=== PATIENT | female | born 1960 | race Caucasian/White ===

== ENCOUNTER → 2024-01-18 | Outpatient (CLI) | payer MEDICAID, SELFPAY ==
[2024-01-18 11:56] LABS: Absolute Lymphocyte Count 2.01 X10^3/uL (0.83-4.51); Absolute Neutrophil Count 4.6 X10^3/uL (2.0-7.7); Basophil# 0.06 X10^3/uL; Basophil% 0.8 % (0-1); Eosinophil# 0.11 X10^3/uL; Eosinophils% 1.5 % (0-5); Hematocrit 44.5 % (37-47); Hemoglobin 14.8 g/dL (12.0-15.0); Lymphocyte # 2.01 X10^3/ul (0.83-4.51); Lymphocyte % 27.6 % (19-41); Mean Corp Hgb Conc 33.3 g/dL (32-36); Mean Corpuscular Hgb 30.6 pg (27.0-32.0); Mean Corpuscular Volume 92.1 fL (81-99); Mean Platelet Vol. 11.4 fl (6.2-12.0); Monocyte# 0.49 X10^3/uL; Monocyte% 6.7 % (0-10); NRBC Flagged by Analyzer 0 % (0-5); Neutrophil # 4.59 X10^3/uL (2.7-7.7); Platelet Count 390 K/mm3 (150-450); RBC Distribution Width CV 13.2 % (11.6-14.6); RBC Distribution Width SD 44.6 fl (35.1-43.9); Red Blood Count 4.83 M/mm3 (4.2-5.4); White Blood Count 7.3 K/mm3 (4.4-11.0)
[2024-01-18 12:35] LABS: Vitamin D,25 Hydroxy 28.2 ng/mL
[2024-01-18 12:39] LABS: AST(SGOT) 25 U/L (15-37); Alanine Aminotransfer ALT/SGPT 34 U/L (13-56); Alkaline Phosphatase 124 U/L (45-117); Anion Gap 10 (5-15); BUN 15 mg/dL (7-18); BUN/Creat Ratio 16.1 RATIO (10-20); Calcium,Total 9.5 mg/dL (8.5-10.1); Chloride 106 mmol/L (98-107); Cholesterol 267 mg/dL (200); Creatinine, Serum 0.93 mg/dL (0.55-1.02); EST Glomerular Filtration Rate 65 mL/min (>60); Est Glom Filt Rate - Afr Amer 79 mL/min (>60); Globulin 4.2 g/dL (2.2-4.2); Glucose 107 mg/dL (74-106); High Density Lipoprotein 58 mg/dL; Potassium 3.8 mmol/L (3.5-5.1); Protein, Total 8.2 g/dL (6.4-8.2); Sodium Level 141 mmol/L (136-145); Thyroid Stim Hormone (TSH) 3.02 uIU/mL (0.358-3.74); Triglycerides 193 mg/dL; Very Low Density Lipoprotein 39 mg/dL (5-40)
== END | disposition home or self-care (01) ==
LOC: MFPLAB 10:06
PROVIDERS: Visit Provider Family Medicine
DX: Z13.21 Encounter for screening for nutritional disorder (principal); Z13.220 Encounter for screening for lipoid disorders; R03.0 Elevated blood-pressure reading, without diagnosis of hypertension; Z13.1 Encounter for screening for diabetes mellitus
CPT/HCPCS: 36415; 80053; 80061; 82306; 84443; 85025

== ENCOUNTER → 2024-01-31 | Outpatient (CLI) | payer MEDICAID, SELFPAY ==
[2024-02-04 16:45] LABS: HPV Reflexed? NOT INDICATED
== END | disposition home or self-care (01) ==
PROVIDERS: Visit Provider Nurse Practitioner Family
DX: Z12.4 Encounter for screening for malignant neoplasm of cervix (principal)
CPT/HCPCS: 88175; G0145

== ENCOUNTER → 2024-02-04 | Outpatient (CLI) | payer MEDICAID, SELFPAY ==
--- NOTE | 2024-02-04 13:40 | BI_ITS ---
MAMMOGRAPHY - BILATERAL SCREENING REASON FOR EXAM: Female, 63 years old. Routine annual screening examination. PERTINENT HISTORY: Non-contributory. TECHNIQUE: Digital bilateral breast mallory (3D mammographic acquisition) in the CC and MLO projections. 2-D mediolateral oblique (MLO) and craniocaudad (CC) views of both breasts were obtained. CAD: Full Field Digital Mammography with Computer Added Detection was performed. COMPARISON: Comparison is made with prior study dated April 28, 2012. FINDINGS: Breast Composition: The breasts are almost entirely fatty. There are no dominant masses or suspicious calcifications. There is a 4.8 mm x 6.1 mm slightly ill-defined nodule in the deep upper lateral portion of the right breast. Correlation with ultrasound is recommended. No other significant abnormalities are identified. BI/SCRN MAMM (CAD)W/MALLORY BILAT IMPRESSION: 4.8 mm x 6.1 mm slightly ill-defined nodule in the deep upper lateral portion of the right breast. Correlation with ultrasound is recommended. ASSESSMENT CATEGORY: BIRADS Category 0: Incomplete. Need additional imaging evaluation. A letter regarding these results will be sent to the patient by the facility within 30 days. Approximately 10% of breast cancers are not detected by mammography. A normal mammogram should not delay biopsy of a clinically suspicious abnormality. [id number] Electronically Signed: Chu Nathan MD at 14:49 EDT ,
== END | disposition home or self-care (01) ==
LOC: OPBI 13:38
PROVIDERS: PCP Family Medicine; Referring Provider Nurse Practitioner Family; Visit Provider Nurse Practitioner Family
DX: Z12.31 Encounter for screening mammogram for malignant neoplasm of breast (principal)
CPT/HCPCS: 77063; 77067

== ENCOUNTER → 2024-02-10 | Outpatient (CLI) | payer MEDICAID, SELFPAY ==
--- NOTE | 2024-02-10 12:41 | US_ITS ---
STUDY: ULTRASOUND BREAST - RIGHT REASON FOR EXAM: Female, 63 years old. Abnormal screening mammogram. TECHNIQUE: Axial and longitudinal images of the RIGHT breast were performed with a high resolution ultrasound transducer. # OF IMAGES: 22 COMPARISON: Comparison is made with prior study dated February 04, 2024. FINDINGS: RIGHT Breast: The upper outer quadrant of the right breast was examined with ultrasound. There is a 1.6 cm x 1 cm x 0.6 cm benign-appearing fatty lymph node at the 11:00 position of the breast at 10 cm from the nipple. US/Breast Limited Unilateral IMPRESSION: 1.6 cm x 1 cm x 0.6 cm benign-appearing lymph node in the 11:00 position of the breast at 10 cm from the nipple. ASSESSMENT CATEGORY: BIRADS Category 2: Benign. A letter regarding these results will be sent to the patient by the facility within 30 days. Electronically Signed: Chu Nathan MD at 14:23 EDT ,
== END | disposition home or self-care (01) ==
LOC: OPUS 12:41
PROVIDERS: PCP Family Medicine; Referring Provider Nurse Practitioner Family; Visit Provider Nurse Practitioner Family
DX: R92.8 Other abnormal and inconclusive findings on diagnostic imaging of breast (principal); N63.0 Unspecified lump in unspecified breast
CPT/HCPCS: 76642

== ENCOUNTER 2024-04-03 12:52 | Emergency (ER) | payer MEDICAID, SELFPAY ==
[2024-04-03 12:53] VITALS: BP 130/98; PULSE 121; RESP 18; TEMP 36.9; O2SAT 95; BMI 30.9
[2024-04-03 13:49] LABS: Absolute Lymphocyte Count 0.88 X10^3/uL (0.83-4.51); Absolute Neutrophil Count 8.2 X10^3/uL (2.0-7.7); Basophil# 0.08 X10^3/uL; Basophil% 0.8 % (0-1); Eosinophil# 0.04 X10^3/uL; Eosinophils% 0.4 % (0-5); Hematocrit 46.5 % (37-47); Hemoglobin 15.8 g/dL (12.0-15.0); Lymphocyte # 0.88 X10^3/ul (0.83-4.51); Lymphocyte % 8.3 % (19-41); Mean Corpuscular Hgb 30.4 pg (27.0-32.0); Mean Corpuscular Volume 89.4 fL (81-99); Mean Platelet Vol. 11.4 fl (6.2-12.0); Monocyte# 1.32 X10^3/uL; Monocyte% 12.5 % (0-10); NRBC Flagged by Analyzer 0 % (0-5); Neutrophil % 77.7 % (47-70); POSITIVE MORPHOLOGY YES; Platelet Count 397 K/mm3 (150-450); RBC Distribution Width CV 12.7 % (11.6-14.6); RBC Distribution Width SD 41.3 fl (35.1-43.9); White Blood Count 10.6 K/mm3 (4.4-11.0)
[2024-04-03] MEDS: 0.9% Normal Saline (1000mL) 1,000 ML 1000 ML IV (13:54)
[2024-04-03] MEDS: Ondansetron 4 MG/2 ML Vial IV (13:55)
[2024-04-03 14:00] LABS: Differential Indicated SCAN CRITERIA MET
[2024-04-03 14:08] LABS: AST(SGOT) 16 U/L (15-37); Alanine Aminotransfer ALT/SGPT 21 U/L (13-56); Albumin, Serum 3.8 g/dL (3.2-5.0); Alkaline Phosphatase 115 U/L (45-117); Anion Gap 10 (5-15); BUN 20 mg/dL (7-18); Calcium,Total 9.5 mg/dL (8.5-10.1); Chloride 107 mmol/L (98-107); EST Glomerular Filtration Rate 60 mL/min (>60); Est Glom Filt Rate - Afr Amer 72 mL/min (>60); Estimated Creatinine Clearance 56.62 ml/min; Glucose 158 mg/dL (74-106); Potassium 3.3 mmol/L (3.5-5.1); Protein, Total 7.8 g/dL (6.4-8.2); Sodium Level 138 mmol/L (136-145)
[2024-04-03 14:24] LABS: Differential Comment SCANNED
[2024-04-03 14:30] LABS: Bacteria 0 SEEN /hpf (None Seen); Color, Urine Yellow (Yellow); Glucose, Dipstick Normal (Normal); Leukocyte Esterase-Dipstick 500 /ul (Negative); Mucous, Urine 0 SEEN /hpf (<or=2+); Nitrite-Dipstick Positive (Negative); Occult Blood-Urine 25 /ul (Negative); Protein-Dipstick 30 mg/dl (Negative); Red Blood Cells-Urine 0 SEEN /hpf (0-5); Urine Clarity Clear (Clear); Urine Urobilinogen 4 mg/dl (Normal)
[2024-04-03 14:39] LABS: Ketone-Dipstick 150 mg/dl (Negative); Urine Bilirubin Dipstick 3 mg/dL (Negative)
[2024-04-03 14:41] LABS: Squamous Epithelial Cells - UA 0-5 SEEN /hpf (5-10); White Blood Cells 0-5 SEEN /hpf (0-5)
[2024-04-03 14:50] VITALS: BP 119/75; PULSE 101; RESP 20; TEMP 36.4; O2SAT 98
--- NOTE | 2024-04-03 15:13 | ED.VIS.GI ---
HPI HPI - GI History of Present Illness Chief Complaint: Nausea/Vomiting/Diarrhea Narrative Narrative: 63-year-old female presenting with nausea, vomiting, diarrhea. She does not have abdominal pain. She does not know if she has had a fever because she does not have a thermometer. Denies cough, shortness of breath. States she has 1 kidney so she gets concerned about dehydration when she is ill. No urinary complaints. Symptoms ongoing since Wednesday PFS PFS Home Medications ?Medication ?Instructions ?Recorded ?Last Taken ?Type ondansetron 4 mg disintegrating 4 mg PO Q8H PRN PRN Nausea #14 tabs 04/03/24 Unknown Rx tablet Allergy/AdvReac Type Severity Reaction Status Date / Time No Known Allergies Allergy Verified 04/03/24 12:53 Social History Smoking Status: Never smoker ROS ROS ED Constitutional Constitutional ED: Reports chills and sweats; Denies fever(s) Eyes Eyes: Denies blurry vision or change in vision ENT ENT ED: Denies ear pain, rhinorrhea or sore throat Cardiovascular Cardiovascular: Denies chest pain, palpitations or racing heartbeat Respiratory/Chest Respiratory/Chest: Denies cough, dyspnea or sputum Gastrointestinal Gastrointestinal: Reports diarrhea, nausea and vomiting; Denies abdominal pain or constipation Genitourinary Genitourinary ED: Denies dysuria, hematuria or urinary frequency Musculoskeletal Musculoskeletal: Reports myalgias; Denies arthralgias or neck pain Integumentary Denies abscess, Abrasions or rash Neurologic Neurologic: Denies headache(s), paresthesias or weakness Psychiatric Psychiatric: Denies anxiety, depression, suicidal ideation or suicidal thoughts Endocrine Endocrinology: Denies polydipsia or polyuria EXAM Physical Exam Const Vital Signs: 04/03/24 12:53 04/03/24 14:50 Temperature 98.4 F 97.5 F L Temperature Source Temporal Pulse Rate 121 H 101 H Respiratory Rate 18 20 H Blood Pressure 130/98 H 119/75 Blood Pressure Mean 108 89 Pulse Ox 95 98 MDM MDM MDM Narrative Medical decision making narrative: Patient presenting with nausea, vomiting, diarrhea. Suspect this is likely something viral. Patient does not care to be tested. IV line was established and patient was medicated with normal saline and Zofran. Differential includes viral etiology, dehydration, anemia, electro abnormalities. CBC will be obtained to assess white blood cell count, hemoglobin, platelets. CMP to assess renal function, electrolytes, liver function, glucose. Lipase to assess for pancreatitis. Urinalysis to assess for UTI. CBC shows normal white blood cell count 2.6. Hemoglobin 15.8. Platelets are normal. 7. Renal function and electrolytes within normal limits with exception of potassium of 3.3. LFTs are normal. Lipase normal. Urinalysis shows positive nitrites however she does not have an 500 leukocyte esterase however there is 0-5 squamous epithelial cells and is 5 to BCs. She does not have any urinary complaints I will send this for culture. Patient feeling better on reevaluation. I will send her home with Raulito. She is encouraged to plenty fluids. She was able to pass a p.o. challenge. Impression: 1. Viral gastroenteritis Lab Data Attestation: I reviewed the patient's lab results. Labs: Laboratory Results - last 24 hr 04/03/24 04/03/24 13:40 14:26 WBC 10.6 RBC 5.20 Hgb 15.8 H Hct 46.5 MCV 89.4 MCH 30.4 MCHC 34.0 RDW Std Deviation 41.3 RDW Coeff of Tato 12.7 Plt Count 397 MPV 11.4 Immature Gran % (Auto) 0.300 Neut % (Auto) 77.7 H Lymph % (Auto) 8.3 L [place] % (Auto) 12.5 H Eos % (Auto) 0.4 Baso % (Auto) 0.8 Absolute Neuts (auto) 8.2 H Absolute Lymphs (auto) 0.88 Nucleated RBC % 0 Differential Comment SCANNED Sodium 138 Potassium 3.3 L Chloride 107 Carbon Dioxide 21.0 Anion Gap 10 BUN 20 H Creatinine 1.00 Estim Creat Clear Calc 56.62 Est GFR (MDRD) Af Amer 72 Est GFR (MDRD) Non-Af 60 BUN/Creatinine Ratio 20.0 Glucose 158 H Calcium 9.5 Total Bilirubin 1.00 AST 16 ALT 21 Alkaline Phosphatase 115 Total Protein 7.8 Albumin 3.8 Globulin 4.0 Albumin/Globulin Ratio 1.0 Urine Color Yellow Urine Clarity Clear Urine pH 5.0 Ur Specific [place] 1.020 Urine Protein 30 H Urine Glucose (UA) Normal Urine Ketones 150 A* Urine Occult Blood 25 H Urine Nitrite Positive H Urine Bilirubin 3 H Urine Urobilinogen 4 H Ur Leukocyte Esterase 500 H Urine RBC 0 SEEN Urine WBC 0-5 SEEN Ur Squamous Epith Cells 0-5 SEEN Urine Bacteria 0 SEEN Urine Mucus 0 SEEN Discharge Plan Triage Chief Complaint: Nausea/Vomiting/Diarrhea ED Provider: Robb Johnson Dx/Rx/DC Orders Instructions: ED Gastroenteritis, Viral (Adult) Prescriptions: New ondansetron 4 mg tablet,disintegrating 4 mg PO Q8H PRN PRN (Reason: Nausea) Qty: 14 0RF Primary Care Provider: Violeta Valdes Referrals: Violeta Valdes MD [Primary Care Provider] - Print Language: [place] Citizen Disposition Disposition: Home, Self Care Discharge Date/Time: 04/03/24 14:50
== END 2024-04-03 14:50 | disposition home or self-care (01) ==
PROVIDERS: Emergency Provider Student in an Organized Health Care Education/Training Program; PCP Family Medicine; Visit Provider Student in an Organized Health Care Education/Training Program
DX: A08.4 Viral intestinal infection, unspecified (principal); Z90.5 Acquired absence of kidney; M79.10 Myalgia, unspecified site; R68.83 Chills (without fever)
CPT/HCPCS: 80053; 81001; 85025; 87086; 87088; 96361; 96374; 99282; A4216; J2405

== ENCOUNTER → 2024-10-06 | Outpatient (CLI) | payer MEDICAID, SELFPAY ==
--- NOTE | 2024-10-06 12:58 | RAD_ITS ---
STUDY: X-RAY - RIGHT ANKLE REASON FOR EXAM: Female, 63 years old. Ankle pain TECHNIQUE: 3 views of the right ankle. COMPARISON: None. FINDINGS: Normal visualized distal tibia and fibula. Normal medial and lateral malleoli. Normal tibiotalar articulation and ankle mortise. Normal visualized talus and calcaneus. The visualized subtalar, talonavicular, calcaneocuboid and tarsal articulations are normal. There is no demonstrated fracture. The soft tissue structures are unremarkable. RAD/Ankle min 3 Views IMPRESSION: Normal x-ray examination of the ankle. Electronically Signed: Brayden Jordan MD at 12:25 EST ,
--- NOTE | 2024-10-06 13:00 | RAD_ITS ---
STUDY: X-RAY - RIGHT KNEE REASON FOR EXAM: Female, 63 years old. Knee pain TECHNIQUE: 4 views of the right knee. COMPARISON: None. FINDINGS: Normal visualized distal femur. Normal visualized proximal tibia and fibula. Normal proximal tibiofibular articulation. There is no demonstrated fracture. Normal medial femorotibial compartment. Normal lateral femorotibial compartment. Normal patellofemoral articulation. There is a small volume joint effusion. The soft tissue structures are unremarkable. RAD/Knee 4 or More Views IMPRESSION: Small joint effusion. No demonstrated fracture. Electronically Signed: Brayden Jordan MD at 11:53 EST ,
== END | disposition home or self-care (01) ==
PROVIDERS: PCP Family Medicine; Referring Provider Family Medicine; Visit Provider Family Medicine
DX: M25.561 Pain in right knee (principal); M25.571 Pain in right ankle and joints of right foot
CPT/HCPCS: 73564; 73610

== ENCOUNTER → 2024-11-09 | Outpatient (CLI) | payer MEDICAID, SELFPAY ==
--- NOTE | 2024-11-09 10:50 | VDLE_ITS ---
Reason For Study: Bilateral leg swelling RIGHT LEFT GSV is normal. GSV is normal. CFV is compressible, spontaneous, phasic, CFV is compressible, spontaneous, phasic, competent and demonstrates normal competent, and demonstrates normal augmentation. augmentation. FV is compressible, spontaneous, phasic, FV is compressible, spontaneous, phasic, competent and demonstrates normal competent and demonstrates normal augmentation. augmentation. POP V is compressible, spontaneous, phasic, POP V is compressible, spontaneous, phasic, competent and demonstrates normal competent and demonstrates normal augmentation. augmentation. T/P Trunk is compressible. T/P Trunk is compressible. PTV is compressible. PTV is compressible. RT PerV is compressible. LT PerV is compressible. Procedure This is a venous duplex using B-mode, color flow and spectral Doppler. Exam performed in department. A preliminary report was called and/or faxed to Dr. Valdes. VL/Venous Duplex US - [place] Extrem Interpretation Summary Deep veins of the lower extremities are bilaterally patent and compressible seg mentally. There is no evidence of deep vein thrombosis on either side. Valvular competence appears in tact within the proximal deep venous systems bilaterally. The great saphenous veins appear bila terally patent and compressible segmentally. Ordering Physician: Violeta Valdes Referring Physician: Violeta Valdes Performed By: Anuradha Tyosn RVT
== END | disposition home or self-care (01) ==
LOC: CVS 10:47
PROVIDERS: PCP Family Medicine; Referring Provider Family Medicine; Visit Provider Family Medicine
DX: R60.0 Localized edema (principal)
CPT/HCPCS: 93970

== ENCOUNTER 2024-11-14 13:00 | Outpatient (RCR) | payer MEDICAID, SELFPAY ==
--- NOTE | 2024-10-17 14:30 | HP.PTEVAL ---
Patient's Visit Information Visit Information Visit Information: RIP WANG is a 64 year old F referred to Physical Therapy by Violeta Valdes MD with a diagnosis of RIGHT KNEE AND ANKLE PAIN. Date of Evaluation: 10/17/24 Physical Therapist: Domingo Queen, PT, Cert MDT, OCS Visit Plan Frequency: 2x /Week Duration: 4 Weeks Plan: PT INTERVENTIONS DLS ,HIP STRENGTHENING , LE FLEXABILITY ,FUNCTIONAL STRENGTHENING AND MODALTIES Subjective Subjective: This 64 y/o female to physical therapy with right leg. Patient martinez right leg pain for ~ 1 year. Patient noticed symptoms pain was worsen especially when driving a car.Seen Dr recommended PT and had x-rays knee ankle -. Patient pain located thigh to foot. Aggravating stairs ,kneeling and squatting extended walking and standing. Worse in morning.Alleviating factors activity. Symptoms worse with inactivity but stretching. Paresthesia/tingling -. Coughing/sneezing +.Sleeping is affected by pain . Patient has no trauma or injury no h/o back pain. Patient condition affects QOL and function.Patient goals to decrease pain. SOCIAL: single VOCATION: home Pain Right Lower Extremity: Pain Intensity (Out of 10): 5 Pain Intensity Range: 10 Comment: right ankle Objective Objective: POSTURE: mod thoracic kyphosis with swayed spine PALPATION: tender piriformis ,SI ,lateral hip NEURO: denies paresthesia/tingling ,reflexes L3-4 ,L4-5 ,L5-S1 1/3 GAIT: ambulates with reciprocal pattern light antalgic right side SYMMETRIES: align PROM HIP: hip flexion 115 degrees ,IR 0 degrees pain , MMT: ( peak force ) right hip flexion 22.1 ,hip abd 9.1 ,quads/hams/ankle 4/5 ,left 4/5 LUMBAR ROM : flexion min loss pain leg ,extension mod loss pain , side glides min loss Special Tests L/S Slump test left side: Negative L/S Slump test right side: Negative L/S Left Straight Leg Raise: Negative L/S Right Straight Leg Raise: Negative Lumbar Standing: Flexion - Mechanical Response: No effect Lumbar Standing: Flexion - Symptoms During Testing: Increases Lumbar Standing: Flexion - Symptoms After Testing: Worse Lumbar Standing: Extension - Mechanical Response: No effect Lumbar Standing: Extension - Symptoms During Testing: Increases Lumbar Standing: Extension - Symptoms After Testing: Worse Lumbar Standing: Right Side Glides - Mechanical Response: No effect Lumbar Standing: Right Side [place] - Symptoms During Testing: No effect Lumbar Standing: Right Side [place] - Symptoms After Testing: No effect Lumbar Standing: Left Side [place] - Mechanical Response: No effect Lumbar Standing: Left Side [place] - Symptoms During Testing: No effect Lumbar Standing: Left Side [place] - Symptoms After Testing: No effect R Hip Scour: Negative R Hip KAROLYN - Intraarticular Pathology: Positive R Hip Trendelenberg - Glut Medius: Positive R Knee [place] - Meniscus: Negative R Knee Posterior Drawer - PCL: Negative R Knee Posterior Sag - PCL: Negative R Knee Valgus - MCL: Negative R Knee Varus - LCL: Negative R Knee Patellar Grind - PFS: Negative Balance/Special Test Scores Lower Extremity Functional Score: 31 Goals Goal 1:: Patient to be I with HEP for back and hip Goal Time Frame: 4-6 Weeks Goal 2:: Patient to demonstrate 50% improvement with less pain and improved function Goal Time Frame: 4-6 Weeks Goal 3:: Patient improve peak force hip by 5-10m # to increase strength. Goal Time Frame: 4-6 Weeks Goal 4:: Patient improve LFES score by 5-10 # to improve QOL and function. Goal Time Frame: 4-6 Weeks Goal 5:: Patient to normalize gait with activity Goal Time Frame: 4-6 Weeks Rehabilitation Potential Physical Therapy Diagnosis: This patient has weakness hip along with pain is produced with lumbar motion testing causing radicular symptoms in right leg ,eventually may need further imaging in lumbar and hip thus benefit from skilled PT Rehabilitation Potential: Good Anticipated Interventions Patient/Client Instruction: Educate patient on: Condition and Plan of Care For the Purpose of:: To decrease pain, To increase ROM, To improve muscle performance and motor function, To improve ability to perform ADL's, To improve performance and independence with ADL's, To improve ability of physical actions for home/community/work/leisure, To improve health of tissue, To decrease soft tissue restriction, To improve health and function and To improve tolerance to ADL's Therapeutic Exercise to Include: Strength training, Body mechanics, Postural training, Flexibilty training and Dynamic Lumbar Stabilization Comment: HIP STRENGTHENING For the Purpose of:: To decrease pain, To increase ROM, To improve muscle performance and motor function, To increase tolerance to activity/condition/position, To improve ability of physical actions for home/community/work/leisure, To improve health of tissue, To decrease soft tissue restriction, To increase flexibility/ROM and To reduce risk of recurrence TENS: Yes IF ES: Yes Cryotherapy (ice pack, ice massage): Yes Thermo therapy (hot pack): Yes Ultrasound (thermal/non thermal): Yes For the Purpose of:: To decrease pain, To increase ROM, To improve muscle performance and motor function, To increase tolerance to activity/condition/position, To improve ability of physical actions for home/community/work/leisure, To improve health of tissue, To decrease soft tissue restriction, To prevent re-injury and To improve tolerance to ADL's Text: Thank you for the opportunity to evaluate your patient. For Medicare and Medicare HMO plans, please review the plan of care and approve it. It will need to be FAXED BACK to us at [phone] for Medicare purposes. For Medicare only, by signing this I certify the plan of care. Please let me know if there are questions or concerns regarding this plan of care. Physician Signature: Date:
--- NOTE | 2025-03-07 09:01 | HP.PTDCNRP_ITS ---
Patient Information Patient Information: RIP WANG was seen in my office for initial evaluation on 10/17/24. The following Plan of Care was established for this patient: POC Established Initial Frequency: 2x /Week Initial Duration: 4 Weeks Anticipated Interventions Patient/Client Instruction: Educate patient on: Condition and Plan of Care For the Purpose of:: To decrease pain, To increase ROM, To improve muscle performance and motor function, To improve ability to perform ADL's, To improve performance and independence with ADL's, To improve ability of physical actions for home/community/work/leisure, To improve health of tissue, To decrease soft tissue restriction, To improve health and function and To improve tolerance to ADL's Therapeutic Exercise to Include: Strength training, Body mechanics, Postural training, Flexibilty training and Dynamic Lumbar Stabilization For the Purpose of:: To decrease pain, To increase ROM, To improve muscle performance and motor function, To increase tolerance to activity/condition/position, To improve ability of physical actions for home/community/work/leisure, To improve health of tissue, To decrease soft tissue restriction, To increase flexibility/ROM and To reduce risk of recurrence TENS: Yes IF ES: Yes Cryotherapy (ice pack, ice massage): Yes Thermo therapy (hot pack): Yes Ultrasound (thermal/non thermal): Yes For the Purpose of:: To decrease pain, To increase ROM, To improve muscle performance and motor function, To increase tolerance to activity/condition/position, To improve ability of physical actions for ho me/community/work/leisure, To improve health of tissue, To decrease soft tissue restriction, To prevent re-injury and To improve tolerance to ADL's Last Seen Last Seen: This patient was last seen in our office . Pertinent comments regarding their Physical therapy will appear below: Patient was seen for right knee and ankle pain with patient progressing towards goals ,thus is d/c to HEP At this point I will be discontinuing this patient from physical therapy. I would be happy to see this patient again in the future if found appropriate by the physician. Thank you! Domingo Queen, PT, Cert MDT, OCS Balance/Gait/Functional tests Balance/Special Test Scores Lower Extremity Functional Score: 31
== END 2024-11-14 19:00 | disposition home or self-care (01) ==
LOC: PT 13:00
PROVIDERS: PCP Family Medicine; Visit Provider Family Medicine
DX: M25.561 Pain in right knee (principal); M25.571 Pain in right ankle and joints of right foot
CPT/HCPCS: 97110; 97162

== ENCOUNTER → 2025-08-31 | Outpatient (CLI) | payer MEDICAID, SELFPAY ==
[2025-08-31 10:38] LABS: Hematocrit 40.7 % (37-47); Hemoglobin 13.9 g/dL (12.0-15.0); Mean Corp Hgb Conc 34.2 g/dL (32-36); Mean Corpuscular Volume 91.5 fL (81-99); Mean Platelet Vol. 10.9 fl (6.2-12.0); Platelet Count 396 K/mm3 (150-450); RBC Distribution Width CV 12.8 % (11.6-14.6); RBC Distribution Width SD 43.1 fl (35.1-43.9); Red Blood Count 4.45 M/mm3 (4.2-5.4); White Blood Count 7.5 K/mm3 (4.4-11.0)
[2025-08-31 10:54] LABS: Creatinine, Urine (random) 54.30 mg/dL (28.00-217.00)
[2025-08-31 11:20] LABS: AST(SGOT) 21 U/L (<=31); Alanine Aminotransfer ALT/SGPT 24 U/L (<=34); Albumin, Serum 4.4 g/dL (3.4-4.8); Alkaline Phosphatase 109 U/L (35-104); Anion Gap 12 (5-15); BUN 16 mg/dL (4-19); BUN/Creat Ratio 17.1 RATIO (10-20); Calcium,Total 10.3 mg/dL (7.6-11.0); Carbon Dioxide 25.1 mmol/L (21.0-32.0); Chloride 103 mmol/L (98-108); Cholesterol 263 mg/dL (<=200); Globulin 3.3 g/dL (2.2-4.2); Glucose 97 mg/dL (70-99); Low Density Lipoprotein Calc. 169 mg/dL; Potassium 4.0 mmol/L (3.3-5.1); Triglycerides 230 mg/dL; Very Low Density Lipoprotein 46 mg/dL (5-40); Vitamin D,25 Hydroxy 41.2 ng/mL (30-100); cholesterol:hdl ratio screen 5.13
[2025-08-31 17:37] LABS: Microalbumin,Random Urine < 12.0 mg/L (<20 mg/L)
== END | disposition home or self-care (01) ==
LOC: MFPLAB 09:07
PROVIDERS: PCP Family Medicine; Visit Provider Family Medicine
DX: I10 Essential (primary) hypertension (principal); E78.5 Hyperlipidemia, unspecified; R73.09 Other abnormal glucose
CPT/HCPCS: 36415; 80053; 80061; 82043; 82306; 82570; 83036; 85027